=== PATIENT | male | born 1950 | race Caucasian/White ===

== ENCOUNTER → 2017-01-31 | Day surgery (SDC) | payer MEDICARE ==
[~2017-01-31] MED LIST: DEXAMETHASONE SOD PHOS 4 MG/ML VIAL ONE; EPINEPHrine HCL (1:1000) 1 MG/ML VIAL ONE; LACTATED RINGER'S 1000 ML INJ 1,000 ML ONE; MIDAZOLAM HCL 2 MG/2 ML VIAL ONE; MOXIFLOXACIN 0.5% OPHT SOLN 3 ML BTL ONE; ONDANSETRON HCL 4 MG/2 ML VIAL IV PUSH ONE; PHENYLEPHRINE HCL 10% OPTH SOLN 5 ML BTL ONE; PROPOFOL 200 MG/20 ML AMP IV ONE; SODIUM CHLORIDE 0.9% INJ 10 ML ONE; TETRACAINE 0.5% OPTH SOLN 15 ML BTL ONE; TOBRAMYCIN/DEXAMETHASONE OPTH OINT 3.5 GM TUBE ONE; ceFAZolin INJ 1,000 MG VIAL ONE; prednisoLONE ACETATE 1% OPHT SUSP 5 ML BTL ONE
--- NOTE | 2017-02-04 13:07 | MP ---
cc: AMRITA MACK MD DATE OF SURGERY: 02/02/2017 DATE OF : 1950 PREOPERATIVE DIAGNOSIS: Epiretinal membrane, right eye. POSTOPERATIVE DIAGNOSIS: Epiretinal membrane, right eye. OPERATION: Pars plana vitrectomy, removal of epiretinal membrane / internal limiting membrane, endolaser, insertion of 10% SF6 gas right eye. COMPLICATIONS None. BLOOD LOSS Less than 160. ANESTHESIA General Dr. Mukherjee INDICATIONS FOR PROCEDURE Delightful patient who presented with worsening vision, metamorphopsia and his right eye. The patient elected for surgical correction to decrease his worsening vision. PROCEDURE NOTE After informed consent was obtained, the patient brought to the operating room general anesthesia was established. The right eye was prepped and draped in sterile fashion with Betadine in the conjunctival fornix. A deep port pars plana vitrectomy was established with self-retaining infusion cannula. The core vitreous was evacuated. The EOMs / ILM on complex was highlighted with ICG and removed with Ezio eye awl and forceps. The retina had renewed mobility improved contour after this removal. 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 A superonasal retinal break was also noted, both areas were treated with endolaser. No other retinal holes, tears or detachments were seen. Air-fluid change was carried out and 10% SF6 gas was instilled. The trocars removed and sclerotomies closed with several Vicryl suture and conjunctiva reapproximated with 6-0 plain gut. Subconjunctival injection of Ancef dexamethasone were given. The eye was patched Tobramycin ointment. The patient brought to recovery room in stable condition. Continue followup with [facility] for his postoperative care. MD JOSE MIGUEL Mackey/jose ramon /1:13 PM /1:01 PM
== END | disposition home or self-care (01) ==
LOC: ESDC 07:43
PROVIDERS: ATTEND Ophthalmology
DX: H35.371 Puckering of macula, right eye (principal)
CPT/HCPCS: 00145; 67043; J0171; J0690; J1100; J2250; J2405; J3010; J7120